=== PATIENT | female | born 1955 | race Caucasian/White ===

== ENCOUNTER 2017-12-27 13:47 | Emergency (ER) | payer OTHER ==
[2017-12-27 13:55] VITALS: RESP 18
--- NOTE | 2017-12-27 14:18 | EDPHY ---
H & P Stated Complaint: severe anxiety/psychiatrist has been changing med regimen Source: Patient, Family () Exam Limitations: No limitations - Personal History Current Tetanus/Diphtheria Vaccine: Yes - Medical/Surgical History Hx Asthma: No Hx Chronic Respiratory Disease: No Hx Diabetes: No Hx Cardiac Disease: No Hx Renal Disease: No Hx Cirrhosis: No Hx Alcoholism: No Hx HIV/AIDS: No Hx Splenectomy or Spleen Trauma: No Other PMH: anxiety - Social History Smoking Status: Never smoked Time Seen by Provider: 12/27/17 14:18 HPI/ROS: HPI: This is a 62-year-old female who presents with Chief Complaint: severe anxiety/psychiatrist has been changing med regimen Location: psych Quality: anxiety Duration: months Signs and Symptoms: no auditory and visual command hallucinations, no suicidal ideation with a plan, no homicidal ideation, not paranoid, + decreased appetite , + insomnia, + anhedonia Timing: Worse Severity: Severe Context: Patient has a history of generalized anxiety disorder and social anxiety disorder presents with worsening anxiety with several panic attacks daily that have inhibited her activities of daily living. She reports that her symptoms have worsened since August. She reports being very self critical, does not feel safe to be alone, she has very frustrated and does not have the will to keep living. She does not have a plan to commit suicide. Denies any homicidal ideation/hallucinations. She is working with an outpatient psychiatrist and has multiple medication changes without any improvement in her symptoms. Patient reports that she hides her symptoms very well and a puts on a good front. Modifying Factors: Comment: ROS: see HPI Constitutional: No fever, no chills, no weight loss Eyes: No blurred vision Respiratory: No shortness of breath, no cough Cardiovascular: No chest pain Gastrointestinal: No nausea, no vomiting, no diarrhea Genitourinary: No dysuria Extremities: No myalgias Neurologic: No weakness, no numbness Skin: No rashes Hematologic: No bruising, no bleeding MEDICAL/SURGICAL/SOCIAL HISTORY: Medical history: Generalized anxiety disorder. Surgical history: Denies Social history: . CONSTITUTIONAL: Tearful, flat affect, tidy, elderly white female who appears younger than stated age, awake and alert, no obvious distress HEENT: Atraumatic and normocephalic, PERRL, EOMI. Tympanic membranes clear. Oropharynx clear, no exudate and moist pink mucosa. Airway patent. No lymphadenopathy. No meningismus. Cardiovascular: Normal S1/S2, regular rate, regular rhythm, without murmur rub or gallop. PULMONARY/CHEST: Symmetrical and nontender. Clear to auscultation bilaterally. Good air movement. No accessory muscle usage. ABDOMEN: Soft, nondistended, nontender, no rebound, no guarding, no peritoneal signs, no masses or organomegaly. No CVAT. EXTREMITIES: 2/2 pulses, strength 5/5, no deformities, no clubbing, no cyanosis or edema. NEUROLOGICAL: no focal neuro deficits. GCS 15. SKIN: Warm and dry, no erythema. no rash. Good capillary refill. PSYCH: Good eye contact, no flight of ideas, organized thought process, good insight and judgment, no auditory and visual command hallucinations, no suicidal ideation with a plan, no homicidal ideation, not paranoid (Sonia Alegre) Constitutional: Initial Vital Signs Temperature (C) 36.6 C 12/27/17 13:52 Heart Rate 99 12/27/17 13:52 Respiratory Rate 18 12/27/17 13:52 Blood Pressure 123/68 H 12/27/17 13:52 O2 Sat (%) 92 12/27/17 13:52 O2 Delivery Mode Room Air Allergies/Adverse Reactions: Penicillins Allergy (Severe, Verified 12/27/17 13:52) Swelling/neck,face,throat Sulfa (Sulfonamide Antibiotics) Allergy (Intermediate, Verified 12/27/17 13:52) Hives Home Medications: Medication Instructions Recorded Clonipin 08/26/10 Imipramine HCl 30 mg PO 12/19/11 Viibryd 12/27/17 Medical Decision Making ED Course/Re-evaluation: 1445: Patient is gravely disabled and have severe depression anxiety; failing outpatient treatment; does not feel safe at home with thoughts of self-harm. Placed on M1 hold. Labs and UDS reviewed and medically clear for mental health evaluation. 1700: End of shift. Signed over to Dr. Harmon pending mental health evaluation and disposition. Patient continues remained calm and cooperative. This patient was seen under the supervision of my primary supervising physician. I evaluated care for this patient independently. (Sonia Alegre) I took over care of this patient at 5:00 p.m.. This patient was placed on an M1 hold for severe depression and anxiety. We are awaiting behavioral health evaluation. 5:50 p.m., patient seen and evaluated by Behavioral Health. They have cleared her for discharge and outpatient follow-up. They have arranged for close follow -up with her psychiatrist. The patient is not suicidal. She is comfortable being discharged with family. She understands for follow-up. Return to emergency department precautions reviewed with her. All of her questions were answered. She was discharged in good condition. (Yanet Harmon) Differential Diagnosis: Differential diagnosis includes but is not limited to severe and functional depression, generalized anxiety disorder, social phobias, self-harm, suicidal ideation. (Sonia Alegre) - Data Points Laboratory Results: Laboratory Results 12/27/17 14:20 12/27/17 14:20 12/27/17 12/27/17 12/27/17 14:20 14:20 14:20 WBC 7.97 10^3/uL 10^3/uL (3.80-9.50) RBC 5.10 10^6/uL 10^6/uL (4.18-5.33) Hgb 15.9 g/dL g/dL (12.6-16.3) Hct 46.9 % % (38.0-47.0) MCV 92.0 fL fL (81.5-99.8) MCH 31.2 pg pg (27.9-34.1) MCHC 33.9 g/dL g/dL (32.4-36.7) RDW 12.4 % % (11.5-15.2) Plt Count 343 10^3/uL 10^3/uL (150-400) MPV 10.0 fL fL (8.7-11.7) Neut % (Auto) 75.9 % H % (39.3-74.2) Lymph % (Auto) 16.3 % % (15.0-45.0) Davis % (Auto) 5.4 % % (4.5-13.0) Eos % (Auto) 1.1 % % (0.6-7.6) Baso % (Auto) 0.8 % % (0.3-1.7) Nucleat RBC Rel Count 0.0 % % (0.0-0.2) Absolute Neuts (auto) 6.05 10^3/uL 10^3/uL (1.70-6.50) Absolute Lymphs (auto) 1.30 10^3/uL 10^3/uL (1.00-3.00) Absolute Monos (auto) 0.43 10^3/uL 10^3/uL (0.30-0.80) Absolute Eos (auto) 0.09 10^3/uL 10^3/uL (0.03-0.40) Absolute Basos (auto) 0.06 10^3/uL 10^3/uL (0.02-0.10) Absolute Nucleated RBC 0.00 10^3/uL 10^3/uL (0-0.01) Immature Gran % 0.5 % % (0.0-1.1) Immature Gran # 0.04 10^3/uL 10^3/uL (0.00-0.10) Sodium 146 mEq/L H mEq/L (135-145) Potassium 3.9 mEq/L mEq/L (3.5-5.2) Chloride 110 mEq/L mEq/L (97-110) Carbon Dioxide 22 mEq/l mEq/l (22-31) Anion Gap 14 mEq/L mEq/L (8-16) BUN 19 mg/dL mg/dL (7-23) Creatinine 0.9 mg/dL mg/dL (0.6-1.0) Estimated GFR > 60 Glucose 118 mg/dL H mg/dL (70-100) Calcium 9.5 mg/dL mg/dL (8.5-10.4) Urine Opiates Screen NEGATIVE (NEGATIVE) Urine Barbiturates NEGATIVE (NEGATIVE) Ur Phencyclidine Scrn NEGATIVE (NEGATIVE) Ur Amphetamine Screen NEGATIVE (NEGATIVE) U Benzodiazepines Scrn NEGATIVE (NEGATIVE) Urine Cocaine Screen NEGATIVE (NEGATIVE) U Marijuana (THC) Screen NEGATIVE (NEGATIVE) Ethyl Alcohol < 10 mg/dL mg/dL (0-10) Departure - Departure Disposition: Home, Routine, Self-Care Clinical Impression: Severe anxiety with panic Condition: Good Instructions: Anxiety (ED) Additional Instructions: Read and follow provided instructions. Follow-up with your psychiatrist tomorrow for re-evaluation and further management. Take your medication as prescribed as prescribed only. Return to the emergency department for worsening symptoms, worsening depression , suicidal thoughts or other serious concerns. Referrals: Whitney Hernández [Primary Care Provider] - As per Instructions
[2017-12-27 14:39] LABS: PLATELET COUNT 343 10^3/uL (150-400)
[2017-12-27 18:59] VITALS: BP 135/75; PULSE 88; TEMP 98.1; O2SAT 96
== END 2017-12-27 19:00 | disposition home or self-care (01) ==
PROC: GZ11ZZZ Psychological Tests, Personality and Behavioral (ICD-10-PCS; principal; 2017-12-27)
DX: F41.0 Panic disorder [episodic paroxysmal anxiety] (principal)
CPT/HCPCS: 80305; G0480

== ENCOUNTER → 2018-02-06 | Outpatient (CLI) | payer OTHER | LOC: CIMAGING 09:52 | PROVIDERS: ATTEND Family Medicine | DX: J18.9 Pneumonia, unspecified organism (principal); J40 Bronchitis, not specified as acute or chronic | CPT/HCPCS: 71046-PO ==

== ENCOUNTER → 2018-02-13 | Outpatient (CLI) | payer OTHER | LOC: FIMAGING 14:35 | PROVIDERS: ATTEND Family Medicine | DX: R91.8 Other nonspecific abnormal finding of lung field (principal) ==